=== PATIENT | male | born 1965 | race African-American/Black ===

== ENCOUNTER 2017-08-16 21:44 | Inpatient (IN) | payer OTHER ==
[~2017-08-16] VITALS: Ht 180.3 cm; Wt 110.2 kg
[2017-08-16] MEDS ORDERED: ASPIRIN 81MG TABLET PO ONE (22:45)
[2017-08-16] MEDS: NITROGLYCERIN 0.4MG TABLET SL SL PRN ×3 (23:09→23:31)
[2017-08-16 23:15] LABS: BASOPHILS % 0.6 % (0.0-2.0); EOSINOPHILS % 2.4 % (0.0-5.0); HEMATOCRIT. 41.3 % (42.0-52.0); HEMOGLOBIN. 13.8 g/dL (14.0-18.0); LYMPHOCYTES % 35.3 % (20.0-50.0); MEAN CORPUSCULAR VOLUME 83.7 fL (80.0-94.0); MEAN PLATELET VOLUME 8.9 fl (7.4-10.4); MONOCYTES % 9.9 % (2.0-8.0); NEUTROPHILS % 51.8 % (40.0-76.0); PLATELET 213 x1000/uL (130-400); RED BLOOD CELL COUNT 4.93 mill/uL (4.7-6.1); RED CELL DISTRIBUTION WIDTH 14.4 % (11.6-14.6)
[2017-08-16 23:16] LABS: CHLORIDE 107 mEq/L (98-107); PROTHROMBIN TIME 10.7 sec (9.4-11.6)
[2017-08-16] MEDS ORDERED: IBUPROFEN 600MG TABLET PO ONE (23:30)
[2017-08-17] VITALS (7 sets, daily range): BP systolic 122–142; BP diastolic 68–93
[2017-08-17] MEDS ORDERED: MORPHINE SULFATE 4 MG/ML CPJ (NOT FOR IM USE) IV PRN (05:15)
[2017-08-17 08:52] LABS: BASOPHILS % 0.3 % (0.0-2.0); EOSINOPHILS % 2.3 % (0.0-5.0); HEMATOCRIT. 41.2 % (42.0-52.0); HEMOGLOBIN. 13.6 g/dL (14.0-18.0); LYMPHOCYTES % 30.1 % (20.0-50.0); MEAN CORPUSCULAR HEMOGLOBIN 27.9 pg (28.0-32.0); MEAN CORPUSCULAR VOLUME 84.5 fL (80.0-94.0); MEAN PLATELET VOLUME 9.2 fl (7.4-10.4); MONOCYTES % 8.3 % (2.0-8.0); PLATELET 204 x1000/uL (130-400); RED BLOOD CELL COUNT 4.88 mill/uL (4.7-6.1); RED CELL DISTRIBUTION WIDTH 14.6 % (11.6-14.6)
[2017-08-17 09:11] LABS: *AMPHETAMINES SCREEN URINE NEGATIVE (NEGATIVE); *BARBITURATES SCREEN URINE NEGATIVE (NEGATIVE); *BENZODIAZEPINES SCREEN URINE NEGATIVE (NEGATIVE); CANNABINOID URINE SCREEN NEGATIVE (NEGATIVE); METHADONE URINE SCREEN NEGATIVE (NEGATIVE); OPIATES URINE SCREEN NEGATIVE (NEGATIVE); PHENCYCLIDINE URINE SCREEN NEGATIVE (NEGATIVE)
[2017-08-17 09:12] LABS: CHLORIDE 106 mEq/L (98-107)
[2017-08-17 09:13] LABS: *COCAINE SCREEN URINE NEGATIVE (NEGATIVE)
[2017-08-17] MEDS ORDERED: PNEUMOCOCCAL 23-VAL P-SAC VAC 0.5 ML IM ONE (10:00)
[2017-08-17] MEDS ORDERED: REGADENOSON 0.4 MG/5 ML IV NR (11:30)
[2017-08-17 12:53] LABS: T4 FREE 0.87 ng/dL (0.76-1.46)
[2017-08-17] MEDS ORDERED: REGADENOSON 0.4 MG/5 ML IV ONE (13:39)
[2017-08-17 18:42] LABS: CREATINE KINASE 154 IU/L (39-308); CREATINE KINASE MB FRACTION 1.2 ng/mL (0.5-3.6)
[2017-08-17] MEDS ORDERED: AMLO5TAB4 PO (18:52)
[2017-08-17] MEDS ORDERED: ATOR10TA PO (18:52)
[2017-08-18] MEDS ORDERED: ASPIRIN 81MG TABLET PO SCH (09:00)
== END 2017-08-17 21:00 | disposition home or self-care (01) | DRG 313 ==
LOC: ER 22:07 → 5WST 23:54 → EDBEDREQTM 23:57 → EDBEDREQ 23:57
PROVIDERS: ADMIT Family Medicine; ATTEND Family Medicine
DX: R07.89 Other chest pain (principal); E66.9 Obesity, unspecified; I10 Essential (primary) hypertension; Z87.891 Personal history of nicotine dependence; Z68.33 Body mass index [BMI] 33.0-33.9, adult
CPT/HCPCS: 36415; 71045; 78452; 80053; 80061; 80305; 82550; 82553; 83036; 83880; 84439; 84443; 84484; 85025; 85379; 85610; 90732; 93005; 93306; 93970; 99285; A9500; J2270; J2785

== ENCOUNTER 2019-06-09 23:07 | Emergency (ER) | payer MEDICAID, OTHER ==
[~2019-06-09] VITALS: Ht 180.3 cm; Wt 109.0 kg
[~2019-06-09 23:07] MED LIST: AMLO5TAB4 PO; ATOR10TA PO
[2019-06-09] MEDS ORDERED: SODIUM CHLORIDE 0.9% 1,000 ML IV ONE (23:56)
[2019-06-09] MEDS ORDERED: IBUPROFEN 600MG TABLET PO STA (23:56)
[2019-06-10 00:40] LABS: BASOPHILS % 0.4 % (0.0-2.0); EOSINOPHILS % 0.2 % (0.0-5.0); HEMATOCRIT. 42.5 % (42.0-52.0); HEMOGLOBIN. 13.7 g/dL (14.0-18.0); LYMPHOCYTES % 8.8 % (20.0-50.0); MEAN CORPUSCULAR HEMOGLOBIN 27.6 pg (28.0-32.0); MEAN CORPUSCULAR VOLUME 85.5 fL (80.0-94.0); MONOCYTES % 11.9 % (2.0-8.0); NEUTROPHILS % 78.7 % (40.0-76.0); PLATELET 219 x1000/uL (130-400); RED BLOOD CELL COUNT 4.96 mill/uL (4.7-6.1); RED CELL DISTRIBUTION WIDTH 14.2 % (11.6-14.6)
[2019-06-10 00:47] LABS: PROTHROMBIN TIME 10.4 sec (9.6-11.0)
[2019-06-10 01:00] LABS: CHLORIDE 105 mEq/L (98-107)
[2019-06-10 01:04] LABS: ETHANOL BLOOD < 10 mg/dL
[2019-06-10] MEDS ORDERED: CEFTRIAXONE 1 G PREMIX 50 ML IV ONE (01:30)
[2019-06-10] MEDS ORDERED: AZITHROMYCIN 500 MG in DEXT 5% WATER 250 ML IV SCH (01:30)
[2019-06-10 01:32] LABS: CLARITY URINE CLEAR (CLEAR); COLOR URINE YELLOW (YELLOW); KETONES URINE NEGATIVE (NEGATIVE); LEUKOCYTE ESTERASE URINE NEGATIVE (NEGATIVE); NITRITE URINE NEGATIVE (NEGATIVE); OCCULT BLOOD URINE NEGATIVE (NEGATIVE); PH URINE 6.5 (4.5-8.0); PROTEIN URINE NEGATIVE (NEGATIVE); SPECIFIC GRAVITY URINE 1.023 (1.005-1.030)
[2019-06-10 01:49] LABS: METHADONE URINE SCREEN NEGATIVE (NEGATIVE)
[2019-06-10 01:50] LABS: *AMPHETAMINES SCREEN URINE NEGATIVE (NEGATIVE); *BARBITURATES SCREEN URINE NEGATIVE (NEGATIVE); *BENZODIAZEPINES SCREEN URINE NEGATIVE (NEGATIVE); *COCAINE SCREEN URINE NEGATIVE (NEGATIVE); CANNABINOID URINE SCREEN NEGATIVE (NEGATIVE); OPIATES URINE SCREEN NEGATIVE (NEGATIVE)
[2019-06-10 01:52] LABS: PHENCYCLIDINE URINE SCREEN NEGATIVE (NEGATIVE)
[2019-06-10 04:00] VITALS: BP 137/76
== END 2019-06-10 06:00 | disposition home or self-care (01) ==
LOC: ER 23:07 → CANBEDREQ 06-10 05:35 → ER 06-10 06:00
DX: J18.9 Pneumonia, unspecified organism (principal); I10 Essential (primary) hypertension
CPT/HCPCS: 36415; 71045; 80053; 80305; 80320; 81003; 83605; 84145; 84484; 85025; 85610; 87040; 87086; 87804; 93005; 96365; 96375; 99284; J0456; J0696; J7030; J7060; G0480